=== PATIENT | male | born 1970 | race African-American/Black ===

== ENCOUNTER 2018-04-20 10:50 | Emergency (ER) | payer BC, OTHER ==
[2018-04-20 11:19] LABS: #Eosinphils 0.1 thou/uL (0.0-0.7); #Monocytes 0.6 thou/uL (0.11-0.59); #Neutrophils 4.2 thou/uL (1.40-6.50); %Basophils 0.1 % (0.0-1.0); %Eosinophils 0.9 % (0.0-10.0); %Lymphocytes 38.3 % (21.0-51.0); %Monocytes 8.1 % (0.0-10.0); %Neutrophils 52.7 % (42.0-75.0); Hemoglobin 14.6 g/dL (14.0-18.0); Mean Corpuscular HGB CONC 34.7 g/dL (32.0-36.0); Mean Corpuscular Hemoglobin 32.3 pg (27.0-31.0); Mean Corpuscular Volume 93.2 fL (78.0-98.0); Mean Platelet Volume 7.2 fL (7.4-10.4); Platelet Count 255 thou/uL (130-400); RBC Distribution Width 12.4 % (11.5-14.5); Red Blood Cell (RBC) Count 4.52 mill/uL (4.70-6.10); White Blood Cell (WBC) Count 7.9 thou/uL (4.8-10.8)
[2018-04-20 11:42] LABS: ALT (SGPT) 46 U/L (8-55); AST (SGOT) 41 U/L (5-34); Albumin 4.7 g/dL (3.5-5.0); Alkaline Phosphatase 80 U/L (40-150); Anion Gap 17 mmol/L (10-20); BUN (Urea Nitrogen) 32 mg/dL (8.9-20.6); Bilirubin, Total 0.5 mg/dL (0.2-1.2); CK (CPK) 502 U/L (30-200); Calc. Creatinine Clearance 0 mL/min (70-130); Calcium 10.2 mg/dL (7.8-10.44); Carbon Dioxide 24 mmol/L (22-29); Chloride 99 mmol/L (98-107); Estimated GFR-MDRD 45; Globulin 3.4 g/dL (2.4-3.5); Glucose 156 mg/dL (70-105); Lipase 31 U/L (8-78); Protein, Total 8.1 g/dL (6.0-8.3); Sodium 136 mmol/L (136-145)
[2018-04-20 11:47] LABS: CKMB 3.6 ng/mL (0-6.6); Troponin I Less than 0.010 ng/mL (< 0.028)
--- NOTE | 2018-04-20 11:50 | RAD ---
PORTABLE CHEST ONE VIEW: Date: 04-20-18 Time: 10:29 a.m. History: Chest pain. FINDINGS: Comparison is made with exam of 12-04-09. The heart size is normal. The lungs are expanded without focal areas of consolidation, pneumothorax, or pleural effusions. IMPRESSION: No radiographic evidence of acute cardiopulmonary process. POS: H
[2018-04-20] MEDS ORDERED: Ondansetron ODT 4 MG TAB ONE (12:19)
[2018-04-20 14:44] LABS: CKMB 2.6 ng/mL (0-6.6); Troponin I Less than 0.010 ng/mL (< 0.028)
== END 2018-04-20 15:19 | disposition home or self-care (01) ==
LOC: ERS 10:50
DX: R07.2 Precordial pain (principal); I10 Essential (primary) hypertension; F43.10 Post-traumatic stress disorder, unspecified; F17.210 Nicotine dependence, cigarettes, uncomplicated
CPT/HCPCS: 36415; 71045; 80053; 82553; 83690; 84484; 85025; 93005; J2270; Q0162

== ENCOUNTER 2018-08-05 09:48 | Outpatient (CLI) | payer OTHER ==
--- NOTE | 2018-08-05 11:36 | RAD ---
RIGHT FOOT THREE VIEW SERIES: Indication: Right foot injury, pain. FINDINGS: Lisfranc joint is maintained. There is no fracture or dislocation. No radiopaque foreign body in the soft tissues of the right foot. IMPRESSION: No acute osseous abnormality right foot. POS: JOSE
== END 2018-08-05 09:49 | disposition home or self-care (01) ==
LOC: BICRAD 09:48
PROVIDERS: ATTEND Orthopaedic Surgery
DX: S99.921A Unspecified injury of right foot, initial encounter (principal); T68.XXXA Hypothermia, initial encounter

== ENCOUNTER 2024-11-26 05:57 | Observation (INO) | payer OTHER ==
[2024-11-26 06:19] LABS: #Basophils Less than 0.03 10x3/uL (0.0-0.2); %Basophils 0.2 % (0.0-1.0); %Eosinophils 0.8 % (0.0-10.0); %Lymphocytes 50.2 % (21.0-51.0); %Monocytes 10.7 % (0.0-10.0); %Neutrophils 37.9 % (42.0-75.0); Hematocrit 42.5 % (42.0-52.0); Hemoglobin 14.8 g/dL (14.0-18.0); Mean Corpuscular HGB CONC 34.8 g/dL (32.0-36.0); Mean Corpuscular Hemoglobin 33.2 pg (27.0-31.0); Mean Corpuscular Volume 95.3 fL (78.0-98.0); Platelet Count 254 10x3/uL (130-400); RBC Distribution Width 14.2 % (11.5-14.5); Red Blood Cell (RBC) Count 4.46 mill/uL (4.70-6.10)
[2024-11-26] MEDS ORDERED: Aspirin Chewable 81 MG TAB ONE (06:21)
[2024-11-26] MEDS ORDERED: dilTIAZem 25 MG/5 ML VIAL ONE (06:30)
[2024-11-26 06:38] LABS: ALT (SGPT) 26 U/L (Less than 45); AST (SGOT) 83 U/L (11-34); Alkaline Phosphatase 108 U/L (40-110); Anion Gap 20 mmol/L (10-20); BUN (Urea Nitrogen) 9 mg/dL (8.4-25.7); Bilirubin, Total 0.7 mg/dL (0.3-1.2); Calc. Creatinine Clearance 0 mL/min (70-130); Carbon Dioxide 24 mmol/L (22-29); Chloride 100 mmol/L (98-107); Estimated GFR 97; Globulin 4.2 g/dL (2.4-3.5); Glucose 117 mg/dL (70-105); Potassium 3.1 mmol/L (3.5-5.1); Protein, Total 8.2 g/dL (6.0-8.3); Sodium 141 mmol/L (136-145)
[2024-11-26 06:42] LABS: Troponin I Less than 0.010 ng/mL (< 0.028)
[2024-11-26] MEDS ORDERED: Metoprolol Tartrate 5 MG (5 mL) VIAL ONE ×2 (07:27→10:44)
[2024-11-26] MEDS ORDERED: Potassium Chloride 20 MEQ TAB ONE (07:27)
[2024-11-26] MEDS ORDERED: Magnesium 2 GM/50 ML BAG (IN WATER) ONE (07:27)
[2024-11-26] MEDS ORDERED: Enoxaparin 100 MG (1 mL) SYRINGE ONE (07:28)
[2024-11-26] MEDS ORDERED: Acetaminophen 325 MG TAB PO PRN (07:47)
[2024-11-26] MEDS ORDERED: Ondansetron ODT 4 MG TAB PO PRN (07:47)
[2024-11-26] MEDS ORDERED: traMADol HCl 50 MG TAB PO PRN (07:47)
[2024-11-26] MEDS ORDERED: Aspirin Chewable 81 MG TAB PO SCH (09:00)
[2024-11-26 10:11] VITALS: BMI 28.1
[2024-11-26] MEDS: Metoprolol Tartrate 5 MG (5 mL) VIAL IVP SCH (10:40)
[2024-11-26 10:50] LABS: Phosphorus 3.5 mg/dL (2.5-4.5)
[2024-11-26 10:51] LABS: Magnesium 1.6 mg/dL (1.6-2.6)
[2024-11-26 10:55] LABS: Troponin I 0.048 ng/mL (< 0.028)
[2024-11-26 13:39] LABS: Anion Gap 16 mmol/L (10-20); BUN (Urea Nitrogen) 15 mg/dL (8.4-25.7); Calc. Creatinine Clearance 129 mL/min (70-130); Calcium 9.4 mg/dL (7.8-10.44); Carbon Dioxide 23 mmol/L (22-29); Chloride 103 mmol/L (98-107); Estimated GFR 102; Glucose 109 mg/dL (70-105); Potassium 3.9 mmol/L (3.5-5.1); Sodium 138 mmol/L (136-145)
[2024-11-26 13:44] LABS: Troponin I 0.056 ng/mL (< 0.028)
[2024-11-26] MEDS ORDERED: dilTIAZem 125 MG/25 ML SDV ONE (15:25)
[2024-11-26] MEDS ORDERED: Digoxin 0.5 MG/2 ML AMP ONE (16:58)
[2024-11-26] MEDS: dilTIAZem 30 MG TAB PO SCH ×2 (17:08→20:13)
[2024-11-26] MEDS: Digoxin 0.5 MG/2 ML AMP SLOW IVP SCH (17:08)
[2024-11-26] MEDS: dilTIAZem 25 MG/5 ML VIAL SLOW IVP SCH (20:07)
[2024-11-26] MEDS: Enoxaparin 100 MG (1 mL) SYRINGE SC SCH (20:08)
[2024-11-26] MEDS: traMADol HCl 50 MG TAB PO PRN (20:12)
[2024-11-26] MEDS ORDERED: Enoxaparin 80 MG (0.8 mL) SYRINGE SC SCH (21:00)
[2024-11-27] MEDS: dilTIAZem 125 MG in Sodium Chloride 0.9% 100 ML IVPB SCH (02:01)
[2024-11-27 03:47] LABS: #Basophils Less than 0.03 10x3/uL (0.0-0.2); %Basophils 0.2 % (0.0-1.0); %Eosinophils 0.5 % (0.0-10.0); %Lymphocytes 36.6 % (21.0-51.0); %Monocytes 10.2 % (0.0-10.0); %Neutrophils 52.1 % (42.0-75.0); Hematocrit 35.8 % (42.0-52.0); Hemoglobin 12.6 g/dL (14.0-18.0); Mean Corpuscular HGB CONC 35.2 g/dL (32.0-36.0); Mean Corpuscular Hemoglobin 33.3 pg (27.0-31.0); Mean Corpuscular Volume 94.7 fL (78.0-98.0); Mean Platelet Volume 10.5 fL (7.4-10.4); Platelet Count 227 10x3/uL (130-400); RBC Distribution Width 13.9 % (11.5-14.5); Red Blood Cell (RBC) Count 3.78 mill/uL (4.70-6.10)
[2024-11-27 04:29] LABS: Anion Gap 16 mmol/L (10-20); BUN (Urea Nitrogen) 23 mg/dL (8.4-25.7); Calc. Creatinine Clearance 122 mL/min (70-130); Calcium 8.7 mg/dL (7.8-10.44); Carbon Dioxide 23 mmol/L (22-29); Cardiac Risk 4.2 (Less than 4.5); Chloride 101 mmol/L (98-107); Cholesterol 168 mg/dl (< 200 Desired); Estimated GFR 97; Glucose 102 mg/dL (70-105); HDL Cholesterol 40 mg/dL (>60 Neg Risk); LDL Cholesterol, Calculated 91 mg/dL; Magnesium 1.4 mg/dL (1.6-2.6); Potassium 3.4 mmol/L (3.5-5.1); Sodium 137 mmol/L (136-145); Triglycerides 186 mg/dL (Less than 150)
[2024-11-27 04:39] LABS: Phosphorus 2.6 mg/dL (2.5-4.5)
[2024-11-27] MEDS ORDERED: Electrolyte Replacement Protocol 1 EACH FS SCH (07:45)
[2024-11-27] MEDS: Aspirin Chewable 81 MG TAB PO SCH (08:00)
[2024-11-27] MEDS: Magnesium Sulfate In Water 4 GM in Premix 1 BAG IVPB SCH (11:19)
[2024-11-27] MEDS: Potassium Chloride 20 MEQ TAB PO SCH (11:36)
[2024-11-27 17:18] VITALS: BP 128/88; TEMP 98.9
[2024-11-28] MEDS ORDERED: FLU (Fluarix Triv) TS24-25(6MOS UP)/PF 45 MCG/0.5 ML Syringe IM ONE (09:00)
== END 2024-11-27 17:41 | disposition home or self-care (01) ==
LOC: ERS 05:57 → ERHOLD 07:35 → PCU 18:58
PROVIDERS: ADMIT Family Medicine; ATTEND Family Medicine
PROC: B24BZZZ Ultrasonography of Heart with Aorta (ICD-10-PCS; principal; 2024-11-27)
DX: I48.91 Unspecified atrial fibrillation (principal); I21.A1 Myocardial infarction type 2; I10 Essential (primary) hypertension; R73.03 Prediabetes; E87.6 Hypokalemia; F17.210 Nicotine dependence, cigarettes, uncomplicated; Z79.01 Long term (current) use of anticoagulants; Z79.899 Other long term (current) drug therapy
CPT/HCPCS: 36415; 71045; 80048; 80053; 80061; 83735; 83880; 84100; 84443; 84484; 85025; 93005; 93306; 94760; 96372; 96376; G0378; J1160; J1650; J3475